=== PATIENT | female | born 1950 | race Caucasian/White ===

== ENCOUNTER 2017-05-27 12:44 | Emergency (ER) | payer SELFPAY ==
[~2017-05-27] VITALS: Ht 157.5 cm; Wt 69.8 kg
[2017-05-27 15:11] VITALS: BP 152/78
== END 2017-05-27 15:11 | disposition home or self-care (01) ==
LOC: ED 12:44
DX: S31.825A Open bite of left buttock, initial encounter (principal); E78.00 Pure hypercholesterolemia, unspecified; I10 Essential (primary) hypertension; W54.0XXA Bitten by dog, initial encounter; Y93.89 Activity, other specified; Y92.89 Other specified places as the place of occurrence of the external cause; Y99.8 Other external cause status
CPT/HCPCS: 90715